=== PATIENT | female | born 1945 | race Caucasian/White ===

== ENCOUNTER 2016-07-11 16:06 | Emergency (ER) | payer MEDICARE, OTHER ==
[~2016-07-11] VITALS: Ht 172.7 cm; Wt 72.6 kg
[2016-07-11] MEDS ORDERED: HYDROCODONE/APAP 5/325MG 1 EACH TABLET ONE (19:27)
[2016-07-11] MEDS ORDERED: HYDROCODONE/APAP 5/325MG 1 EACH TABLET PO ONE (19:30)
[2016-07-11 20:21] VITALS: BP 142/74
== END 2016-07-11 20:26 | disposition home or self-care (01) ==
LOC: ER 16:07
DX: S82.142A Displaced bicondylar fracture of left tibia, initial encounter for closed fracture (principal); I10 Essential (primary) hypertension; W01.0XXA Fall on same level from slipping, tripping and stumbling without subsequent striking against object, initial encounter; Y92.89 Other specified places as the place of occurrence of the external cause; Y93.89 Activity, other specified; Y99.8 Other external cause status
CPT/HCPCS: 29505; 73564; 99284; A4606; Z7610

== ENCOUNTER 2021-02-21 14:13 | Emergency (ER) | payer OTHER ==
[~2021-02-21] VITALS: Ht 172.7 cm; Wt 82.1 kg
--- NOTE | 2021-02-21 14:20 | NUR ---
Patient [id number], FROM [facility] C/O WEAKNESS AND DIZZINESS, POSSIBLE SYNCOPAL EPISODE, EMS GAVE 100CC OF FLUIDS FOR HYPOTENSIVE HEALTH CARE MARKETING SPECIALIST. Patient alert and oriented x4. will continue to monitor
[2021-02-21 14:53] LABS: BASOPHILS % (AUTO) 0.4 % (0.0-2.0); EOSINOPHILS % (AUTO) 0.3 % (0.0-6.0); HEMATOCRIT 35 % (33-45); LYMPHOCYTES # (AUTO) 0.8 K/uL (0.8-4.8); LYMPHOCYTES % (AUTO) 11.7 % (20.0-44.0); MEAN CORPUSCULAR HGB CONC 34 g/dl (31.0-36.0); MEAN CORPUSCULAR VOLUME 99 fL (82-100); MONOCYTES # (AUTO) 0.4 K/uL (0.1-1.30); MONOCYTES % (AUTO) 5.9 % (2.0-12.0); NEUTROPHILS # (AUTO) 5.4 K/uL (1.8-8.9); NEUTROPHILS % (AUTO) 81.7 % (43.0-81.0); PLATELET COUNT (AUTO) 217 K/uL (150-450); RED BLOOD CELL COUNT(AUTO) 3.59 MIL/uL (4.0-5.2); WHITE BLOOD COUNT (AUTO) 6.6 K/uL (4.3-11.0)
[2021-02-21] MEDS: IV NS 0.9% 1,000 ML BAG IV ONE (15:01)
[2021-02-21 15:10] LABS: ALANINE AMINOTRANSFERASE 18 U/L (12-78); ALBUMIN 3.4 g/dL (3.4-5.0); ALKALINE PHOSPHATASE 91 U/L (46-116); ASPARTATE AMINOTRANSFERASE 19 U/L (15-37); BILIRUBIN,DIRECT 0.1 mg/dL (0.0-0.2); BILIRUBIN,TOTAL 0.2 mg/dL (0.2-1.0); CALCIUM, SERUM 8.3 mg/dL (8.5-10.1); CARBON DIOXIDE 22 mmol/L (21-32); CHLORIDE 101 mmol/L (98-107); CREATININE 0.7 mg/dL (0.6-1.3); GLUCOSE 93 mg/dL (74-106); POTASSIUM 4.4 mmol/L (3.5-5.1); SODIUM SERUM 135 mmol/L (136-145); TOTAL PROTEIN, SERUM 6.2 g/dL (6.4-8.2); UREA NITROGEN, BLOOD 8 mg/dL (7-18)
[2021-02-21] MEDS ORDERED: OLME40TA18 PO (15:23)
[2021-02-21] MEDS ORDERED: SERT25TA5 PO (15:23)
[2021-02-21] MEDS ORDERED: LEVO125T8 PO (15:23)
[2021-02-21 16:03] VITALS: BP 122/65
--- NOTE | 2021-02-21 16:03 | NUR ---
Patient discharged to home in stable condition. Written and verbal after care instructions given. Patient verbalizes understanding of instruction.
== END 2021-02-21 16:05 | disposition home or self-care (01) ==
LOC: ER 14:16
DX: R55 Syncope and collapse (principal); R42 Dizziness and giddiness; I10 Essential (primary) hypertension; E03.9 Hypothyroidism, unspecified; Z96.643 Presence of artificial hip joint, bilateral; Z60.2 Problems related to living alone; Z79.899 Other long term (current) drug therapy
CPT/HCPCS: 36415; 71045; 80048; 80076; 84484; 85025; 93005; 96360; 99285; J7030

== ENCOUNTER 2022-12-13 09:43 | Inpatient (IN) | payer OTHER ==
[~2022-12-13] VITALS: Ht 172.7 cm; Wt 85.3 kg
[~2022-12-13 09:43] MED LIST: LEVO125T8 PO; OLME40TA18 PO; SERT25TA5 PO
[2022-12-13] MEDS ORDERED: IPRATROPIUM NEB FS 0.5 MG/2.5 ML AMPUL.NEB NEB ONE (10:30)
[2022-12-13] MEDS ORDERED: ALBUTEROL FS 2.5 MG/3 ML VIAL.NEB NEB ONE (10:30)
[2022-12-13] MEDS ORDERED: predniSONE 50 MG TABLET PO ONE (10:30)
[2022-12-13 10:44] LABS: BASOPHILS % (AUTO) 0.2 % (0.0-2.0); EOSINOPHILS % (AUTO) 0.3 % (0.0-6.0); HEMATOCRIT 37 % (33-45); HEMOGLOBIN 12.6 g/dL (11.5-14.8); LYMPHOCYTES # (AUTO) 1.1 K/uL (0.8-4.8); LYMPHOCYTES % (AUTO) 18.6 % (20.0-44.0); MEAN CORPUSCULAR HGB CONC 35 g/dl (31.0-36.0); MEAN CORPUSCULAR VOLUME 96 fL (82-100); MONOCYTES # (AUTO) 0.4 K/uL (0.1-1.30); MONOCYTES % (AUTO) 6.7 % (2.0-12.0); NEUTROPHILS # (AUTO) 4.3 K/uL (1.8-8.9); NEUTROPHILS % (AUTO) 74.2 % (43.0-81.0); PLATELET COUNT (AUTO) 224 K/uL (150-450); WHITE BLOOD COUNT (AUTO) 5.8 K/uL (4.3-11.0)
[2022-12-13 10:57] LABS: CALCIUM, SERUM 9.1 mg/dL (8.5-10.1); CARBON DIOXIDE 26 mmol/L (21-32); CHLORIDE 95 mmol/L (98-107); CREATININE 0.8 mg/dL (0.6-1.3); GLUCOSE 119 mg/dL (74-106); POTASSIUM 4.5 mmol/L (3.5-5.1); SODIUM SERUM 129 mmol/L (136-145); UREA NITROGEN, BLOOD 9 mg/dL (7-18)
--- NOTE | 2022-12-13 11:00 | NUR ---
BIBS C/O "SOB AND PAIN WHEN COUGHING" X 1 WEEK. " I ALSO LOST MY SENSE OF TASTE". AMBULATORY, PLACED IN BED, BREATHING UNLABORED SATURATING AT 94%RA.
[2022-12-13 11:05] LABS: ALANINE AMINOTRANSFERASE 25 U/L (12-78); ALBUMIN 3.8 g/dL (3.4-5.0); ALKALINE PHOSPHATASE 109 U/L (46-116); ASPARTATE AMINOTRANSFERASE 30 U/L (15-37); BILIRUBIN,DIRECT 0.1 mg/dL (0.0-0.2); BILIRUBIN,TOTAL 0.4 mg/dL (0.2-1.0); TOTAL PROTEIN, SERUM 7.2 g/dL (6.4-8.2)
[2022-12-13] MEDS ORDERED: predniSONE 20 MG TABLET ONE (11:06)
[2022-12-13] MEDS ORDERED: Magnesium 1GM/D5W 100ML PREMIX 100 ML IV ONE ×2 (11:06→12:34)
--- NOTE | 2022-12-13 11:20 | NUR ---
X-RAY TECH AT BEDSIDE
[2022-12-13] MEDS ORDERED: ALBUTEROL FS 2.5 MG/3 ML VIAL.NEB ONE (11:29)
[2022-12-13] MEDS ORDERED: IPRATROPIUM NEB FS 0.5 MG/2.5 ML AMPUL.NEB ONE (11:29)
[2022-12-13] MEDS ORDERED: ASPIRIN 325 MG TABLET PO ONE (11:30)
[2022-12-13] MEDS: Magnesium 1GM/D5W 100ML PREMIX 100 ML IV SCH ×2 (11:40→12:35)
[2022-12-13] MEDS ORDERED: ASPIRIN 325 MG TABLET ONE (11:46)
--- NOTE | 2022-12-13 11:51 | NUR ---
SWAB FOR COVID19 SENT TO LAB
--- NOTE | 2022-12-13 12:15 | NUR ---
FRONT ADVISED AUTH ATTAINED VIA INSURANCE FOR PT TO STAY.
--- NOTE | 2022-12-13 12:25 | NUR ---
NOTIFIED NURSING SUP PT IS READY FOR BED ASSIGNMENT
--- NOTE | 2022-12-13 12:27 | NUR ---
ROOM 101 , ADMITTING AWARE
[2022-12-13] MEDS ORDERED: MAG HYDROX/AL HYDROX/SIMETH 30 ML UDC PO PRN (12:30)
[2022-12-13] MEDS ORDERED: IV NS 0.9% 1,000 ML IV ONE (12:30)
[2022-12-13] MEDS ORDERED: MAGNESIUM HYDROXIDE 30 ML UDC PO PRN (12:30)
[2022-12-13] MEDS ORDERED: ONDANSETRON HCL/PF 4 MG/2 ML VIAL IVP PRN (12:30)
[2022-12-13] MEDS ORDERED: Z GUARD REMEDY 4 OZ OINT TP PRN (12:30)
[2022-12-13] MEDS ORDERED: ACETAMINOPHEN 325 MG TABLET PO PRN (12:30)
[2022-12-13] MEDS ORDERED: ALBUTEROL FS 2.5 MG/0.5 ML VIAL.NEB NEB ONE (13:00)
[2022-12-13] MEDS ORDERED: KETOROLAC TROMETHAMINE 15 MG/ML VIAL ONE (13:11)
--- NOTE | 2022-12-13 13:19 | NUR ---
REPORT GIVEN TO DAVID ALFONSO ROOM 101 FOR KRYSTAL
[2022-12-13] MEDS ORDERED: KETOROLAC TROMETHAMINE INJ 30 MG/ML VIAL IV ONE (13:30)
[2022-12-13] MEDS ORDERED: LORAZEPAM INJ 2 MG/ML VIAL IV ONE (13:30)
--- NOTE | 2022-12-13 13:45 | NUR ---
PIPE CLEANERAVIATION SAFETY INSPECTOR NOTE Patient admitted to unit via rney at 1334 accompanied by OFFICE EXECUTIVE with diagnosis of NSTEMI, myocarditis. A/O x 4, able to make needs known. Verbalized stabbing pain at the back when coughing. Patient oriented to room and staff. On room air, tolerating well. Placed on high-parker's position. Hooked to tele monitor with reading of ST-103. IV access in the LFA #22g, sl. Skin intact. Admission care done. Safety measures implemented: bed in lowest locked position, side rails up x 2, call light and tray table within easy reach. Will continue to monitor.
--- NOTE | 2022-12-13 13:45 | NUR ---
PATIENT TRANSFER AND ADMITTED PER ACLS PROTOCOL
[2022-12-13] MEDS: MORPHINE SULFATE INJ 2 MG/ML DISP.SYRIN IV PRN ×2 (15:09→20:18)
--- NOTE | 2022-12-13 15:10 | NUR ---
RN NOTES - PT COMPLAINING OF 10/10 BACK PAIN WHILE COUGHING, GIVING MORPHINE 2 MG IVP ORDERED, WILL CONTINUE TO MONITOR.
--- NOTE | 2022-12-13 15:19 | NUR ---
RN NOTES - PATIENT IS COMPLAINING OF PAINFUL COUGH, DR OJEDA ORDERED ROBITUSSIN 5 ML PO Q6H PRN AND NORCO 5/325 MG Q6H PRN, CARRIED OUT AND ENDORSED TO NATY HERNANDEZ.
[2022-12-13] MEDS ORDERED: GUAIFENESIN/CODEINE 10 ML UDC PO PRN (15:30)
--- NOTE | 2022-12-13 15:36 | NUR ---
RN NOTES - CORRECTED ORDER FROM PEPESIN AC TO PEPESIN DM ORDERED. RETURNED UNOPENED DOSE BACK, WITNESSED BY NATY HERNANDEZ.
[2022-12-13] MEDS: GUAIFENESIN/D-METHORPHAN HB 5 ML UDC PO PRN (15:41)
[2022-12-13] MEDS: ENOXAPARIN SODIUM 40 MG/0.4 ML DISP.SYRIN SQ SCH (15:57)
[2022-12-13] MEDS: LORAZEPAM 1 MG TABLET PO PRN (16:21)
--- NOTE | 2022-12-13 16:25 | NUR ---
RN NOTE Patient verbalized she is anxious, MD aware. Ativan 0.5mg tab po prn given at 1621. Will continue to monitor.
[2022-12-13] MEDS: predniSONE 20 MG TABLET PO SCH (17:29)
--- NOTE | 2022-12-13 18:32 | NUR ---
LIFE SCIENCES MANAGER CLOSING NOTE Patient resting in bed. Still c/o pain when coughing. On room air, tolerating well. Maintained on high-parker's position. Tele monitor with current reading of ST-112. IV access in the LFA #22g, sl. Needs attended. Safety measures implemented: bed in lowest locked position, side rails up x 2, call light and tray table within easy reach. Will endorse terrance to hall clerk.
--- NOTE | 2022-12-13 19:15 | NUR ---
RN NOTE RECEIVED PT FOR CONTINUITY OF CARE. PATIENT A/OX4 IN NO S/SX OF ACUTE DISTRESS AT THIS TIME; CURRENTLY ON ROOM AIR; WITH 02 SAT 94% AT THIS TIME, WITH NOTED COUGH. WITH IV ACCESS ON L FA#22 PATENT, INTACT AND FLUSHING WELL. WILL ENSURE SAFETY MEASURES WITHIN THE SHIFT. PATIENT BED ALARM IS ON. HEAD OF BED ELEVATED. BED IS LOCKED, IN LOWEST POSITION AND SIDE RAILS UP. CALL LIGHT WITHIN REACH OF THE PATIENT. WILL CONTINUE TO MONITOR AND REASSESS FOR ANY CHANGES AND WILL CARRY OUT ANY ONGOING AND ACTIVE MD ORDER.
--- NOTE | 2022-12-13 19:40 | NUR ---
RN NOTE CRITICAL LAB RECEIVED, S/W MONALISA. TROPONIN LEVEL 1012. RN ACKNOWLEDGED. NOTIFIED ONCJESSICA CORTES (DR. SINGLETARY) FOR STATUS UPDATE. MD ACKNOWLEDGED. NO NEW ORDERS. WILL CONT TO MONITOR.
[2022-12-13 20:00] VITALS: BP_SYST 124; BP_SYST 90; BP_DIAS 52; BP_DIAS 74; TEMP 97.6; TEMP 98
--- NOTE | 2022-12-13 20:43 | NUR ---
RN NOTE SECURED ORDER FOR PRN BREATHING TREATMENT FROM DR SINGLETARY.
--- NOTE | 2022-12-13 20:50 | NUR ---
RN NOTE SECURED NEW IV ACCESS ON R WRIST #22, PATENT, INTACT AND FLUSHING WELL, CONNECTED TO IV FLUID ORDERED. Addendum: 12/13/22 at 2108 by SUSSY MOJICA RN PLS DISREGARD NOTE; WRONG CHART ENTRY
[2022-12-13] MEDS ORDERED: ALBUTEROL FS 2.5 MG/0.5 ML VIAL.NEB NEB PRN (21:00)
[2022-12-14] VITALS: BP 107/64; TEMP 98
[2022-12-14] MEDS: predniSONE 20 MG TABLET PO SCH ×2 (00:14→05:58)
[2022-12-14] MEDS: GUAIFENESIN/D-METHORPHAN HB 5 ML UDC PO PRN ×4 (00:14→23:26)
[2022-12-14] MEDS: MORPHINE SULFATE INJ 2 MG/ML DISP.SYRIN IV PRN ×3 (01:30→21:18)
[2022-12-14 04:00] VITALS: BP 113/69; TEMP 97.8
--- NOTE | 2022-12-14 06:00 | NUR ---
RN NOTE MORPHINE ADMINISTERED @129, ENTERED TO AUG VIA ADMIN SCHEDULE FOR 129; SCANNED BUT WASNT SAVED. WILL INFORM PHARMACY. Addendum: 12/14/22 at 0632 by SUSSY MOJICA RN PHARMACY INFORMED; S/W BAHMAN. ACKNOWLEDGED.
--- NOTE | 2022-12-14 06:34 | NUR ---
RN NOTE PATIENT REMAINED TO BE IN NO SIGNS OF ACUTE RESPIRATORY DISTRESS , SAFE ENVIRONMENT MAINTAINED FOR PT. 2X MORPHINE PRN GIVEN AND 1X COUGH MEDICINE PRN GIVEN. WILL ENDORSE PT IN STABLE CONDITION FOR KRYSTAL.
--- NOTE | 2022-12-14 07:22 | NUR ---
CARBON COATER MACHINE OPERATOR OPENING NOTES Received pt asleep in bed AOX4. No signs of pain or discomfort at this time. Pt is on RA and tolerating it well. IV access on LFA 22G patent and intact. HOB elevated to pts comfort. Siderails up at all times. Call light within reach. Will continue to monitor.
[2022-12-14 07:30] LABS: BASOPHILS % (AUTO) 0.1 % (0.0-2.0); HEMATOCRIT 34 % (33-45); HEMOGLOBIN 11.4 g/dL (11.5-14.8); LYMPHOCYTES % (AUTO) 16.7 % (20.0-44.0); MEAN CORPUSCULAR HGB CONC 34 g/dl (31.0-36.0); MEAN CORPUSCULAR VOLUME 98 fL (82-100); MONOCYTES # (AUTO) 0.4 K/uL (0.1-1.30); MONOCYTES % (AUTO) 7.4 % (2.0-12.0); NEUTROPHILS # (AUTO) 4.5 K/uL (1.8-8.9); NEUTROPHILS % (AUTO) 75.8 % (43.0-81.0); PLATELET COUNT (AUTO) 225 K/uL (150-450); RED BLOOD CELL COUNT(AUTO) 3.44 MIL/uL (4.0-5.2); WHITE BLOOD COUNT (AUTO) 5.9 K/uL (4.3-11.0)
[2022-12-14 07:56] LABS: CALCIUM, SERUM 8.8 mg/dL (8.5-10.1); CARBON DIOXIDE 25 mmol/L (21-32); CHLORIDE 98 mmol/L (98-107); CREATININE 0.5 mg/dL (0.6-1.3); GLUCOSE 138 mg/dL (74-106); MAGNESIUM 2.3 mg/dL (1.8-2.4); PHOSPHORUS 3.5 mg/dL (2.5-4.9); POTASSIUM 4.6 mmol/L (3.5-5.1); SODIUM SERUM 130 mmol/L (136-145); UREA NITROGEN, BLOOD 8 mg/dL (7-18)
[2022-12-14 08:00] VITALS: BP 112/70; TEMP 97.5
[2022-12-14] MEDS: LEVOTHYROXINE SODIUM 125 MCG TABLET PO SCH (08:19)
[2022-12-14] MEDS: ASPIRIN 81 MG TAB.CHEW PO SCH (08:19)
[2022-12-14] MEDS: LOSARTAN POTASSIUM 50 MG TABLET PO SCH (08:20)
[2022-12-14] MEDS: SERTRALINE HCL 25 MG TABLET PO SCH (08:20)
[2022-12-14] MEDS: ENOXAPARIN SODIUM 40 MG/0.4 ML DISP.SYRIN SQ SCH (08:21)
[2022-12-14] MEDS: IPRATROPIUM NEB FS 0.5 MG/2.5 ML AMPUL.NEB NEB SCH ×3 (10:26→20:17)
[2022-12-14 12:00] VITALS: BP 109/66; TEMP 97.7
[2022-12-14 12:45] LABS: THYROID STIMULATING HORMONE < 0.007 uIU/mL (0.358-3.74)
[2022-12-14] MEDS: LORAZEPAM 1 MG TABLET PO PRN ×2 (13:18→21:20)
[2022-12-14 14:47] LABS: BILIRUBIN,URINE NEGATIVE (NEGATIVE); COLOR,URINE YELLOW (YELLOW); LEUKOCYTE ESTERASE ,URINE NEGATIVE (NEGATIVE); NITRITE, URINE NEGATIVE (NEGATIVE); PROTEIN,URINE NEGATIVE (NEGATIVE); UGLUCOSE NEGATIVE (NEGATIVE); UROBILINOGEN,URINE 0.2 EU/dL (0.2)
[2022-12-14 15:40] LABS: BACTERIA,URINE None seen /HPF (None Seen); WBC,URINE 0-2 /HPF (0-3)
[2022-12-14 16:00] VITALS: BP 128/84; TEMP 98.1
[2022-12-14] MEDS: HYDROCODONE/APAP 5/325MG TABLET PO PRN (17:11)
--- NOTE | 2022-12-14 18:21 | NUR ---
CNA PER DIEM CLOSING NOTES All due meds and tx given as ordered. Pt tolerated everything well. All needs attended to. Call light within reach. Will endorse to oncoming nurse.
--- NOTE | 2022-12-14 19:15 | NUR ---
HOUSING COORDINATOR OPENING NOTES Received pt asleep in bed AOX4. No signs of pain or discomfort at this time. Pt is on RA and tolerating it well. IV access on LFA 22G patent and intact. HOB elevated to pts comfort. Siderails up at all times. Call light within reach. Will continue to monitor.
[2022-12-14 20:00] VITALS: BP 103/67; TEMP 98
[2022-12-15] VITALS: BP 110/69; TEMP 97.5
[2022-12-15] MEDS: IPRATROPIUM NEB FS 0.5 MG/2.5 ML AMPUL.NEB NEB SCH ×4 (01:30→20:12)
[2022-12-15 04:00] VITALS: BP 111/70; TEMP 98
[2022-12-15 05:39] LABS: BASOPHILS % (AUTO) 0.3 % (0.0-2.0); EOSINOPHILS % (AUTO) 0.5 % (0.0-6.0); HEMATOCRIT 35 % (33-45); HEMOGLOBIN 11.5 g/dL (11.5-14.8); LYMPHOCYTES # (AUTO) 1.9 K/uL (0.8-4.8); LYMPHOCYTES % (AUTO) 30.7 % (20.0-44.0); MEAN CORPUSCULAR HGB CONC 33 g/dl (31.0-36.0); MEAN CORPUSCULAR VOLUME 99 fL (82-100); MONOCYTES # (AUTO) 0.5 K/uL (0.1-1.30); MONOCYTES % (AUTO) 7.8 % (2.0-12.0); NEUTROPHILS # (AUTO) 3.7 K/uL (1.8-8.9); NEUTROPHILS % (AUTO) 60.7 % (43.0-81.0); PLATELET COUNT (AUTO) 241 K/uL (150-450); RED BLOOD CELL COUNT(AUTO) 3.55 MIL/uL (4.0-5.2); WHITE BLOOD COUNT (AUTO) 6.2 K/uL (4.3-11.0)
[2022-12-15 05:56] LABS: CALCIUM, SERUM 8.8 mg/dL (8.5-10.1); CREATININE 0.7 mg/dL (0.6-1.3); MAGNESIUM 2.3 mg/dL (1.8-2.4); PHOSPHORUS 3.8 mg/dL (2.5-4.9); POTASSIUM 3.9 mmol/L (3.5-5.1)
[2022-12-15 06:04] LABS: THYROID STIMULATING HORMONE 0.031 uIU/mL (0.358-3.74)
--- NOTE | 2022-12-15 07:01 | NUR ---
PHYSICIAN LOCUMS URGENT CARE CLOSING NOTES Received pt asleep in bed AOX4. No signs of pain or discomfort at this time. Pt is on RA and tolerating it well. IV access on LFA 22G patent and intact. HOB elevated to pts comfort. all due meds given per md orders tolerated well, Siderails up at all times. Call light within reach. Will continue to monitor.
--- NOTE | 2022-12-15 07:16 | NUR ---
SENIOR SALES ASSOCIATE OPENING NOTES Received pt awake in bed AOX4. No complaints of pain or discomfort at this time. Pt is on RA and tolerating it well. IV access on LFA 22G patent and intact. HOB elevated to pts comfort. Siderails up at all times. Call light within reach. Will continue to monitor.
[2022-12-15] MEDS: GUAIFENESIN/D-METHORPHAN HB 5 ML UDC PO PRN ×2 (07:28→21:40)
[2022-12-15] MEDS: HYDROCODONE/APAP 5/325MG TABLET PO PRN ×2 (07:29→19:33)
[2022-12-15 08:00] VITALS: BP 128/76; TEMP 97.8
[2022-12-15] MEDS: ASPIRIN 81 MG TAB.CHEW PO SCH (08:16)
[2022-12-15] MEDS: LOSARTAN POTASSIUM 50 MG TABLET PO SCH (08:16)
[2022-12-15] MEDS: SERTRALINE HCL 25 MG TABLET PO SCH (08:16)
[2022-12-15] MEDS: predniSONE 20 MG TABLET PO SCH (08:16)
[2022-12-15] MEDS: LEVOTHYROXINE SODIUM 125 MCG TABLET PO SCH (08:17)
[2022-12-15] MEDS: ENOXAPARIN SODIUM 40 MG/0.4 ML DISP.SYRIN SQ SCH (08:17)
[2022-12-15] MEDS ORDERED: diphenhydrAMINE HCL ELIX 25 MG/10 ML UDC PO PRN (08:30)
[2022-12-15] MEDS: LORAZEPAM 1 MG TABLET PO PRN ×2 (09:07→21:35)
--- NOTE | 2022-12-15 10:18 | NUR ---
HAND TOOL FILER NOTES Pt scheduled for a CT Angio today.Consent signed and verbalized understanding. Written consent signs and 20G IV started on RAC per radiologist.
[2022-12-15 12:00] VITALS: BP 123/62; TEMP 98.3
[2022-12-15] MEDS: METOPROLOL TARTRATE INJ 5 MG/5 ML AMPUL IVP PRN ×10 (13:40→14:25)
[2022-12-15] MEDS ORDERED: IV NS 0.9% 250 ML IV ONE (13:48)
[2022-12-15] MEDS ORDERED: CT SWABBABLE VALVE TRANS SET 1 EA INFUS.SET MC ONE (13:48)
[2022-12-15] MEDS ORDERED: METOPROLOL TARTRATE INJ 5 MG/5 ML AMPUL ONE ×4 (13:48→14:16)
[2022-12-15] MEDS ORDERED: IOHEXOL-350 100 ML VIAL IV ONE (13:48)
[2022-12-15] MEDS ORDERED: NITROGLYCERIN 0.4 MG/TAB BOTTLE ONE (13:48)
[2022-12-15] MEDS ORDERED: NITROGLYCERIN 0.4 MG/TAB BOTTLE SL ONE (14:00)
[2022-12-15 16:00] VITALS: BP 102/54; TEMP 97.8
--- NOTE | 2022-12-15 18:46 | NUR ---
MANAGER PROCESS CLOSING NOTES All due meds and tx given as ordered. Pt tolerated everything well. All needs attended to. Call light within reach. Will endorse to oncoming nurse.
[2022-12-15 20:52] VITALS: BP 134/62; TEMP 97.9
--- NOTE | 2022-12-15 21:35 | NUR ---
CONTROLLED WASTED MEDICATION Ativan 1mg taken from Omnic[facility], 0.5mg given to patient. Wasted 0.5mg witnessed by NATY Norris.
[2022-12-16 01:01] VITALS: BP 122/61; TEMP 97.8
[2022-12-16] MEDS: IPRATROPIUM NEB FS 0.5 MG/2.5 ML AMPUL.NEB NEB SCH ×5 (01:17→20:29)
[2022-12-16] MEDS: ALBUTEROL FS 2.5 MG/0.5 ML VIAL.NEB NEB PRN (03:28)
[2022-12-16 05:23] VITALS: BP 127/71; TEMP 97.8
--- NOTE | 2022-12-16 05:50 | NUR ---
END OF SHIFT REPORT Patient in bed, Alert Oriented x4. Oxygen sat high 90's in RA, observed no sob with exertion. Sinus rhythm in the monitoring tech, HR 75. Ambulatory independent, back pain improved with Hammon. Anxiety resolved with Ativan. Cough improved with Robitussin, breathing tx q6h. Denies chest pain. No acute events overnight. Given MOM per patient request with no result yet. Encouraged ambulation. Continue diuretic lasix as planned. Will endorse to oncoming RN.
[2022-12-16 07:21] LABS: BASOPHILS % (AUTO) 0.2 % (0.0-2.0); EOSINOPHILS % (AUTO) 0.5 % (0.0-6.0); HEMATOCRIT 35 % (33-45); HEMOGLOBIN 11.5 g/dL (11.5-14.8); LYMPHOCYTES # (AUTO) 2.2 K/uL (0.8-4.8); LYMPHOCYTES % (AUTO) 25.5 % (20.0-44.0); MEAN CORPUSCULAR HGB CONC 33 g/dl (31.0-36.0); MEAN CORPUSCULAR VOLUME 98 fL (82-100); MONOCYTES # (AUTO) 0.7 K/uL (0.1-1.30); MONOCYTES % (AUTO) 8.5 % (2.0-12.0); NEUTROPHILS # (AUTO) 5.7 K/uL (1.8-8.9); NEUTROPHILS % (AUTO) 65.3 % (43.0-81.0); PLATELET COUNT (AUTO) 279 K/uL (150-450); RED BLOOD CELL COUNT(AUTO) 3.53 MIL/uL (4.0-5.2); WHITE BLOOD COUNT (AUTO) 8.8 K/uL (4.3-11.0)
--- NOTE | 2022-12-16 07:31 | NUR ---
HEATING AND AIR CONDITIONING MECHANIC OPENING NOTES Received pt awake in bed AOX4. No complaints of pain or discomfort at this time. Pt is on RA and tolerating it well. IV access on LFA 22G AND RAC 20g patent and intact. HOB elevated to pts comfort. Siderails up at all times X3. Call light within reach. Will continue to monitor.
[2022-12-16 07:47] LABS: CALCIUM, SERUM 8.8 mg/dL (8.5-10.1); CREATININE 0.6 mg/dL (0.6-1.3); POTASSIUM 3.8 mmol/L (3.5-5.1)
[2022-12-16 08:00] VITALS: BP 117/72; TEMP 98.1
[2022-12-16] MEDS: LEVOTHYROXINE SODIUM 125 MCG TABLET PO SCH (08:42)
[2022-12-16] MEDS: SERTRALINE HCL 25 MG TABLET PO SCH (08:42)
[2022-12-16] MEDS: LOSARTAN POTASSIUM 50 MG TABLET PO SCH (08:42)
[2022-12-16] MEDS: predniSONE 20 MG TABLET PO SCH (08:42)
[2022-12-16] MEDS: ASPIRIN 81 MG TAB.CHEW PO SCH (08:42)
[2022-12-16] MEDS: ENOXAPARIN SODIUM 40 MG/0.4 ML DISP.SYRIN SQ SCH (08:51)
[2022-12-16] MEDS: HYDROCODONE/APAP 5/325MG TABLET PO PRN ×2 (10:56→19:58)
[2022-12-16] MEDS: GUAIFENESIN/D-METHORPHAN HB 5 ML UDC PO PRN ×2 (10:56→22:28)
[2022-12-16] MEDS: LORAZEPAM 1 MG TABLET PO PRN ×2 (11:35→22:28)
[2022-12-16 12:00] VITALS: BP 127/68; TEMP 98.7
[2022-12-16 16:00] VITALS: BP 101/67; TEMP 98.7
--- NOTE | 2022-12-16 18:35 | NUR ---
LEGAL BILLING ANALYST CLOSING NOTES All due meds and tx given as ordered. Pt tolerated everything well. All needs attended to. Call light within reach. Will endorse to oncoming nurse.
--- NOTE | 2022-12-16 19:30 | NUR ---
THIRD RIGGER OPENING NOTES RECEIVED PATIENT IN BED, ON ROOM AIR SATURATING WELL NO EPISODES OF SOB/ NOTED AT THIS TIME, PATIENT IS AMBULATORY WITH WALKER. A/O X 4 ABLE TO VERBALIZE NEEDS AND CONCERNS, ON CARDIAC DIET NO ASPIRATION NOTED, WITH IV ACCESS AT RAC #20G AND LFA #22G PATENT AND INTACT NO SWELLING OR INFILTRATION NOTED AT THIS TIME. NO CHEST PAIN OR DISCOMFORT NOTED. KEPT PATIENT WARM AND COMFORTABLE, KEPT BED ON MODERATE HIGH BACK REST POSITION, KEPT SIDE RAILS UP X 2 ALL THE TIME, KEPT CALL LIGHT WITHIN AT REACH. WILL CONTINUE TO MONITOR.
--- NOTE | 2022-12-16 19:58 | NUR ---
RN NOTES PATIENT COMPLAIN OF PAIN WITH PS OF 8/10 AT THE LOWER BACK, NORCO TABLET 5-325 GIVEN PO. PATIENT ABLE TO TOLERATE IT. WILL CONTINUE TO MONITOR
[2022-12-16 20:00] VITALS: BP 101/67; TEMP 98.7
--- NOTE | 2022-12-16 22:28 | NUR ---
RN NOTES PATIENT IS ANXIOUS AND UNABLE TO SLEEP, ATIVAN 0.5MG GIVEN. WASTE ATIVAN 0.5MG WITH MS.VIEL VIK ALFONSO. WILL CONTINUE TO MONITOR.
--- NOTE | 2022-12-16 22:30 | NUR ---
RN NOTE (WASTING OF MEDS) WITNESSED WASTING OF ATIVAN 0.5MG OUT OF 1MG TABLET WITH QUETA KUMAR RN.
[2022-12-17] VITALS: BP 111/62; TEMP 97.7
[2022-12-17] MEDS ORDERED: Magnesium 1GM/D5W 100ML PREMIX 100 ML IV SCH
--- NOTE | 2022-12-17 00:06 | NUR ---
RN NOTES MAGNESIUM 1 GM THRU IV GIVEN AND WELL TOLERATED BY THE PATIENT. WILL CONTINUE TO MONITOR.
[2022-12-17] MEDS: IPRATROPIUM NEB FS 0.5 MG/2.5 ML AMPUL.NEB NEB SCH ×2 (01:35→08:25)
[2022-12-17] MEDS: GUAIFENESIN/D-METHORPHAN HB 5 ML UDC PO PRN ×2 (03:43→11:57)
[2022-12-17 04:00] VITALS: BP 133/72; TEMP 97.5
[2022-12-17] MEDS: ALBUTEROL FS 2.5 MG/0.5 ML VIAL.NEB NEB PRN (04:56)
--- NOTE | 2022-12-17 06:41 | NUR ---
INSPECTOR AND HAND PACKAGER CLOSING NOTES PATIENT IS IM BED, A/O X 4 PATIENT IS IN BED ASLEEP, ON MODERATE HIGH BACK REST POSITION. ON ROOM AIR SATURATING WELL NO EPISODES OF SOB/ NOTED AT THIS TIME. PATIENT IS AMBULATORY WITH WALKER, ON CARDIAC DIET NO ASPIRATION NOTED, WITH IV ACCESS AT LFA #22G PATENT AND INTACT NO SWELLING OR INFILTRATION NOTED. PATIENT HAD EPISODES OF V-TACH DR. VALADEZ INFORMED AND WITH ORDERS MADE AND CARRIED OUT. NO CHEST PAIN OR DISCOMFORT NOTED. ALL DUE MEDICATIONS GIVEN ALL NEEDS ATTENDED, KEPT BED ON LOWER LOCKED POSITION KEPT SIDE RAILS UP X 2 ALL THE TIME, KEPT CALL LIGHT WITHIN AT REACH. KEPT PATIENT WARM AND COMFORTABLE. WILL ENDORSED TO AM SHIFT FOR KRYSTAL.
--- NOTE | 2022-12-17 07:00 | NUR ---
RN NOTE RECEIVED PATIENT IN BED RESTING ALERT ORIENTED X4 VERBALLY RESPONSIVE ON ROOM AIR IV ACCESS ON LEFT FOREARM INTACT PATENT AMBULATORY CONTIENT BOWEL/BLADDER SAFETY MEASURE IMPLEMENT BED IN LOW POSITION AND LOCKED CALL LIGHT WITHIN REACH CONTINUE TO MONITOR.
[2022-12-17 07:09] LABS: BASOPHILS % (AUTO) 0.2 % (0.0-2.0); EOSINOPHILS % (AUTO) 1.3 % (0.0-6.0); HEMATOCRIT 33 % (33-45); HEMOGLOBIN 11.1 g/dL (11.5-14.8); LYMPHOCYTES % (AUTO) 25.3 % (20.0-44.0); MEAN CORPUSCULAR HGB CONC 34 g/dl (31.0-36.0); MEAN CORPUSCULAR VOLUME 98 fL (82-100); MONOCYTES # (AUTO) 0.6 K/uL (0.1-1.30); NEUTROPHILS # (AUTO) 5.2 K/uL (1.8-8.9); NEUTROPHILS % (AUTO) 65.2 % (43.0-81.0); PLATELET COUNT (AUTO) 280 K/uL (150-450); RED BLOOD CELL COUNT(AUTO) 3.35 MIL/uL (4.0-5.2); WHITE BLOOD COUNT (AUTO) 7.9 K/uL (4.3-11.0)
[2022-12-17 07:12] LABS: CARBON DIOXIDE 27 mmol/L (21-32); CHLORIDE 100 mmol/L (98-107); CREATININE 0.6 mg/dL (0.6-1.3); GLUCOSE 91 mg/dL (74-106); MAGNESIUM 2.5 mg/dL (1.8-2.4); PHOSPHORUS 4.1 mg/dL (2.5-4.9); POTASSIUM 3.7 mmol/L (3.5-5.1); SODIUM SERUM 135 mmol/L (136-145); UREA NITROGEN, BLOOD 18 mg/dL (7-18)
[2022-12-17 08:00] VITALS: BP 136/76; TEMP 97.6
[2022-12-17] MEDS: LEVOTHYROXINE SODIUM 125 MCG TABLET PO SCH (08:17)
[2022-12-17] MEDS: ASPIRIN 81 MG TAB.CHEW PO SCH (08:17)
[2022-12-17] MEDS: SERTRALINE HCL 25 MG TABLET PO SCH (08:17)
[2022-12-17] MEDS: predniSONE 20 MG TABLET PO SCH (08:17)
[2022-12-17] MEDS: ENOXAPARIN SODIUM 40 MG/0.4 ML DISP.SYRIN SQ SCH (08:18)
[2022-12-17] MEDS: LOSARTAN POTASSIUM 50 MG TABLET PO SCH (08:19)
[2022-12-17] MEDS ORDERED: LORAZEPAM 1 MG TABLET PO ONE (08:30)
[2022-12-17] MEDS ORDERED: AZIT1PAC9 PO (08:50)
[2022-12-17] MEDS ORDERED: PRED50TA PO (08:50)
[2022-12-17] MEDS ORDERED: LORAZEPAM 1 MG TABLET PO PRN (09:00)
[2022-12-17 12:00] VITALS: BP 129/66; TEMP 98.2
--- NOTE | 2022-12-17 13:05 | NUR ---
TESTING AND REGULATING CHIEF NOTE PATIENT DISCHARGE HOME IN STABLE CONDITION,ALERT ORIENTEDX4 VERBALLY RESPONSIVE ON ROOM AIR NO SOB NOT ACUTE DISTRESS NOTED,SHE SIGNED ALL DISCHARGE PAPERS AND BELONGINGS,EDUCATION PROVIDED REGARDING MEDS AND FOLLOWING APPOINTMENT WITH DR FRY, SHE VERBALIZED UNDERSTOOD ALL TEACHING,IV ACCESS REMOVED NO BLEEDING NOTED DRESSING INTACT, SHE LEFT HOSPITAL IN STABLE CONDITION WITH HIS FRIEND BY PRIVATE CAR.
== END 2022-12-17 13:04 | disposition home or self-care (01) | DRG 202 ==
LOC: ER 09:55 → TELE1 13:18
PROVIDERS: ADMIT Internal Medicine; ATTEND Internal Medicine
DX: J20.9 Acute bronchitis, unspecified (principal); I21.A1 Myocardial infarction type 2; E87.1 Hypo-osmolality and hyponatremia; E03.9 Hypothyroidism, unspecified; F32.9 Major depressive disorder, single episode, unspecified; I10 Essential (primary) hypertension; Z20.822 Contact with and (suspected) exposure to COVID-19
CPT/HCPCS: 36415; 71045-TC; 75574; 80048-TC; 80076-TC; 81001; 83735-TC; 83880; 84100-TC; 84300-TC; 84439-TC; 84443-TC; 84484-TC; 85025-TC; 87081-TC; 93307-TC; 94799-TC; C9803; G0378; J1650; J1885; J2270; J3475; J3490; J7050; J7060; Q0163; Q9967

== ENCOUNTER 2023-01-08 10:55 | Emergency (ER) | payer OTHER ==
[~2023-01-08] VITALS: Ht 167.6 cm; Wt 83.9 kg
[~2023-01-08 10:55] MED LIST changes: +AZIT1PAC9 PO; +PRED50TA PO
--- NOTE | 2023-01-08 11:00 | NUR ---
RECEIVED PT 77YRS FEMALE CAME FROM HOME BY FRIND AWAKE AND ALERT RESPIRATION SPONT AND EASY HERE FOR BLOOD DROW
--- NOTE | 2023-01-08 11:20 | NUR ---
SEEN BY DR. KING
[2023-01-08] MEDS ORDERED: LORAZEPAM 1 MG TABLET PO ONE (11:30)
[2023-01-08] MEDS ORDERED: LORAZEPAM 1 MG TABLET ONE (11:46)
[2023-01-08 11:55] LABS: BASOPHILS % (AUTO) 0.7 % (0.0-2.0); EOSINOPHILS % (AUTO) 2.5 % (0.0-6.0); HEMATOCRIT 34 % (33-45); HEMOGLOBIN 11.6 g/dL (11.5-14.8); LYMPHOCYTES % (AUTO) 21.6 % (20.0-44.0); MEAN CORPUSCULAR HGB CONC 34 g/dl (31.0-36.0); MEAN CORPUSCULAR VOLUME 100 fL (82-100); MONOCYTES # (AUTO) 0.5 K/uL (0.1-1.30); MONOCYTES % (AUTO) 11.4 % (2.0-12.0); NEUTROPHILS # (AUTO) 2.8 K/uL (1.8-8.9); NEUTROPHILS % (AUTO) 63.8 % (43.0-81.0); PLATELET COUNT (AUTO) 198 K/uL (150-450); RED BLOOD CELL COUNT(AUTO) 3.43 MIL/uL (4.0-5.2); WHITE BLOOD COUNT (AUTO) 4.4 K/uL (4.3-11.0)
[2023-01-08 11:59] LABS: CALCIUM, SERUM 9.2 mg/dL (8.5-10.1); CARBON DIOXIDE 24 mmol/L (21-32); CHLORIDE 100 mmol/L (98-107); CREATININE 0.4 mg/dL (0.6-1.3); GLUCOSE 101 mg/dL (74-106); POTASSIUM 3.6 mmol/L (3.5-5.1); SODIUM SERUM 137 mmol/L (136-145); UREA NITROGEN, BLOOD 9 mg/dL (7-18)
--- NOTE | 2023-01-08 12:00 | NUR ---
CXRAY DONE AT BED SIDE
--- NOTE | 2023-01-08 12:15 | NUR ---
DINESES CHEST PAIN OR SOB
[2023-01-08] MEDS ORDERED: CHLO25CA22 PO (12:32)
--- NOTE | 2023-01-08 12:48 | NUR ---
Patient discharged to home in stable condition. Written and verbal after care instructions given. Patient verbalizes understanding of instruction.
--- NOTE | 2023-01-08 13:15 | NUR ---
CALLED DESHAWN FERGUSON ( SISTER FOR TO INFECTION PREVENTION COORDINATOR PT )
--- NOTE | 2023-01-08 13:30 | NUR ---
WATING FOR SISITER IN WATING ROOM
[2023-01-08 14:09] VITALS: BP 132/98; TEMP 98.4; O2SAT 94
== END 2023-01-08 14:10 | disposition home or self-care (01) ==
LOC: ER 11:02
DX: F19.239 Other psychoactive substance dependence with withdrawal, unspecified (principal); I10 Essential (primary) hypertension; Z98.890 Other specified postprocedural states; Z79.899 Other long term (current) drug therapy; Z59.00 Homelessness unspecified
CPT/HCPCS: 36415; 71045-TC; 80048-TC; 84484-TC; 85025-TC

== ENCOUNTER 2023-01-08 17:16 | Emergency (ER) | payer OTHER ==
[~2023-01-08] VITALS: Ht 167.6 cm; Wt 83.9 kg
[~2023-01-08 17:16] MED LIST changes: +CHLO25CA22 PO
--- NOTE | 2023-01-08 19:15 | NUR ---
HEAD CT TAKEN
[2023-01-08 20:32] VITALS: BP 153/97; TEMP 97.9; O2SAT 97
== END 2023-01-08 20:32 | disposition home or self-care (01) ==
LOC: ER 17:20
DX: R41.0 Disorientation, unspecified (principal); I10 Essential (primary) hypertension; Z98.890 Other specified postprocedural states; Z79.899 Other long term (current) drug therapy; Z60.2 Problems related to living alone
CPT/HCPCS: 70450-TC; 82962-TC